=== PATIENT | female | born 1985 | race Caucasian/White ===

== ENCOUNTER 2020-05-24 17:14 | Emergency (ER) | payer OTHER, SELFPAY ==
--- NOTE | ~2020-05-24 | US_ITS ---
EXAMINATION: US OB <=14 wk fetus w TV DATE: 05/24/2020 18:45 INDICATION: Pain and bleeding during first trimester TECHNIQUE: Real-time pelvic ultrasound utilizing both a transvaginal and transabdominal probe was pe rformed. The interpreting radiologist was not present for the study. COMPARISON: None. FINDINGS: There is a single living fetus in variable presentation. The placenta is anterior. No evident subcho rionic hematoma. heart rate is 154 beats per minute (bpm). The amniotic fluid volume is subject ively normal. The following biometric data were obtained: BPD: 2.0 cm -> 13 weeks 1 days Head circumference: 8.8 cm -> 13 weeks 6 days Abdominal circumference: 7.0 cm -> 13 weeks 4 days Femur length: 1.0 cm -> 12 weeks 6 days These measurements are concordant. Head circumference to abdominal circumference ratio: 1.27 (normal range 1.12-1.33). Estimated weight: 72 g (+/-) 11 g. IMPRESSION: 1. Single living fetus in variable presentation with heart rate of 154 bpm. 2. Gestational age by ultrasound of 13 weeks 3 day(s) +/- 7 days with ultrasound estimated date of de livery (RUT) of 11/26/2020. Estimated weight is 56th percentile by Hadlock criteria when 11/30/19 21 is used as the RUT. Please correlate with clinical information or earlier ultrasounds for most acc urate RUT. Reviewed, dictated and finalized at location A. IMPRESSION: 1. Single living fetus in variable presentation with heart rate of 154 bp m. 2. Gestational age by ultrasound of 13 weeks 3 day(s) +/- 7 days with ultrasoun d estimated date of delivery (RUT) of 11/26/2020. Estimated weight is 56th percentile by Hadlock criteria when 11/30/2020 is used as the RUT. Please corre late with clinical information or earlier ultrasounds for most accurate RUT.
[2020-05-24 17:23] VITALS: BP 139/73; PULSE 96; RESP 18; TEMP 37.4; O2SAT 100
--- NOTE | 2020-05-24 17:45 | PC.NURSE ---
IVA Harris at bedside. Plan to order labs, ultrasound, and go from there. No heart tones needed at this time d/t possibility of ultrasound.
--- NOTE | 2020-05-24 17:45 | ED.ABDPAIN ---
HPI - Abdominal Pain General Chief Complaint: Vaginal Bleeding <Giovanni Cartwright PA-C - Last Filed: 05/24/20 20:32> Stated Complaint: 13 wks , bleeding <Giovanni Cartwright PA-C - Last Filed: 05/24/20 20:32> Time Seen by Provider: 05/24/20 17:33 <Giovanni Cartwright PA-C - Last Filed: 05/24/20 20:32> Source: patient and family <Giovanni Cartwright PA-C - Last Filed: 05/24/20 20:32> Mode of arrival: ambulatory <Giovanni Cartwright PA-C - Last Filed: 05/24/20 20:32> Limitations: no limitations <Giovanni Cartwright PA-C - Last Filed: 05/24/20 20:32> History of Present Illness HPI narrative: Patient is a 34-year-old female who presents to emergency department for evaluation of vaginal bleeding that began today patient is currently [address] Bartlett patient notes that she has used in vitro fertilization for this patient is G3, P2. Patient notes minimal cramping patient denies any injury or trauma or other complaints presents per private vehicle in no distress <Giovanni Cartwright PA-C - Last Filed: 05/24/20 20:32> Related Data Home Medications: Home Medications Medication Instructions Recorded Confirmed PNV,calcium 75-bjkm-lbspj acid tablet 05/24/20 [ Vitamin Plus Low Iron] <Giovanni Cartwright PA-C - Last Filed: 05/24/20 20:32> Allergies/Adverse Reactions: Allergies Allergy/AdvReac Type Severity Reaction Status Date / Time No Known Allergies Allergy Unknown Verified 05/24/20 17:35 <Giovanni Cartwright PA-C - Last Filed: 05/24/20 20:32> Review of Systems Review of Systems: All systems reviewed & are unremarkable except as noted in HPI and below <Giovanni Cartwright PA-C - Last Filed: 05/24/20 20:32> [facility]LY [facility] Social History Social History: Social History (Updated 05/24/20 @ 17:46 by Giovanni Cartwright PA-C) Smoking status: Never smoker Gender identity (if verbalized by the patient): Female <Giovanni Cartwright PA-C - Last Filed: 05/24/20 20:32> Exam Narrative: Exam Narrative: GENERAL: Well-appearing, well-nourished, and in no acute distress. HEAD: Normocephalic, atraumatic. EYES: PERRLA and EOMI. ENT: Nares clear, no rhinorrhea or epistaxis. Mucous membranes moist. CHEST: Clear to auscultation. No respiratory distress. No wheezes rales or rhonchi HEART: Regular rate and rhythm. No murmur heard. Normal peripheral pulses. ABDOMEN: Soft, nontender, nondistended EXTREMITIES: Normal range of motion. No edema. SKIN: Warm, dry, no rash. NEURO: No focal deficits. Alert and oriented x3. PSYCH: Normal mood and affect. 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 who would like the patient to be on pelvis rest to follow-up in clinic in the next week and given bleeding precautions can be discharged home with follow-up in clinic given the findings <ANTOINE Polo Last Filed: 05/24/20 20:32> Date: 05/24/20 <ANTOINE Polo Last Filed: 05/24/20 20:32> Time: 20:30 <ANTOINE Polo Last Filed: 05/24/20 20:32> Vital Signs Vital signs: Vital Signs Temperature 99.3 F 05/24/20 17:23 Pulse Rate 96 05/24/20 17:23 Respiratory Rate 18 05/24/20 17:23 Blood Pressure 139/73 05/24/20 17:23 Pulse Oximetry 100 05/24/20 17:23 Temperature 98.7 F 05/24/20 20:51 Pulse Rate 80 05/24/20 20:51 Respiratory Rate 20 05/24/20 20:51 Blood Pressure 103/45 L 05/24/20 20:51 Pulse Oximetry 99 05/24/20 20:51 <ANTOINE Polo Last Filed: 05/24/20 20:32> Vital Signs Temperature 99.3 F 05/24/20 17:23 Pulse Rate 96 05/24/20 17:23 Respiratory Rate 18 05/24/20 17:23 Blood Pressure 139/73 05/24/20 17:23 Pulse Oximetry 100 05/24/20 17:23 Temperature 98.7 F 05/24/20 20:51 Pulse Rate 80 05/24/20 20:51 Respiratory Rate 20 05/24/20 20:51 Blood Pres
--- NOTE | 2020-05-24 18:35 | PC.NURSE ---
pt returned from ultrasound via wheelchair, no current needs.
[2020-05-24 18:46] LABS: Alanine Aminotransferase 16 U/L (4-35); Albumin Level 3.8 g/dL (3.5-5.1); Alkaline Phosphatase 58 U/L (38-126); Anion Gap 6 mmol/L (8-16); Aspartate Amino Transferase 21 U/L (14-36); Bilirubin,Total 0.2 mg/dL (0.2-1.3); Blood Urea Nitrogen 9 mg/dL (7-17); Calcium 8.8 mg/dL (8.4-10.2); Carbon Dioxide 24 mmol/L (22-30); Chloride 105 mmol/L (98-107); Estimated CRCL calculation 129 ml/min; Estimated Glomerular Filt Rate > 60; Glucose 89 mg/dL (65-105); Potassium 3.4 mmol/L (3.4-5.0); Sodium 135 mmol/L (137-145)
[2020-05-24 20:12] LABS: Add Urine Microscopic? YES; Appearance Urine Clear (Clear); Bacteria Urine Trace /hpf; Bilirubin Urine Negative (Negative); Blood Urine 3+ (Negative); Color Urine Straw (Yellow); Glucose Urine UA Negative (Negative); Ketones Urine Trace mg/dL (Negative); Leukocyte Esterase Ur Negative LEU/UL (Negative); Nitrate Urine Negative (Negative); Protein Urine Negative (Negative); RBC Urine >75 /hpf (0-2); Specific Grav Ur 1.008 (1.001-1.035); Squamous Epithelial Cell Urine Occasional /hpf (Few); Urobilinogen Urine Negative mg/dL (<2.0)
[2020-05-24 20:51] VITALS: BP 103/45; PULSE 80; RESP 20; TEMP 37.1; O2SAT 99
== END 2020-05-24 20:52 | disposition home or self-care (01) ==
PROVIDERS: Emergency Medicine Emergency Medical Services; Emergency Provider Emergency Medicine
DX: O20.9 Hemorrhage in early pregnancy, unspecified (principal); Z3A.13 13 weeks gestation of pregnancy
CPT/HCPCS: 36415; 76801; 76817; 80053; 81001; 84702; 85461; 99284

== ENCOUNTER 2020-11-23 07:07 | Outpatient (CLI) | payer OTHER, SELFPAY ==
[2020-11-23 07:20] LABS: Hematocrit 39.3 % (37.0-47.0); Mean Corpuscular HGB Conc 33.1 g/dl (32-36); Mean Corpuscular Hemoglobin 30.4 pg (26-34); Mean Corpuscular Volume 91.8 fl (80-100); Mean Platelet Volume 11.5 fl (7.4-10.4); Platelet Count Result 188 k/mm3 (150-375); Red Blood Count 4.28 M/mm3 (4.2-5.4); Red Cell Distribution Width 13.2 % (11.5-14.5); White Blood Count 13.1 K/mm3 (4.5-10.0)
[2020-11-23 13:47] LABS: Rapid Plasma Reagin Non-Reactive (NonReactive)
== END 2020-11-23 07:08 | disposition home or self-care (01) ==
PROVIDERS: Visit Provider Obstetrics & Gynecology
DX: Z01.818 Encounter for other preprocedural examination (principal)
CPT/HCPCS: 36415; 85027; 86592; 86850; 86900; 86901

== ENCOUNTER 2020-11-24 05:25 | Inpatient (IN) | payer OTHER, SELFPAY ==
--- NOTE | 2020-11-23 21:08 | PM.IMHP ---
H&P: HPI History of Present Illness Date/Time: 11/23/20 21:08 Chief Complaint: Scheduled section Narrative: Trisha Cuadra is a 35 year old female at 39w1d presenting for scheduled repeat section. She has a history of 1 previous section. care has been uncomplicated. Review of Systems Constitutional: Constitutional: Reports no additional constitutional complaints ENT: Reports system reviewed and no additional complaints, except as documented Cardiovascular: Cardiovascular: Reports no additional cardiovascular complaints Respiratory: Respiratory: Reports no additional respiratory complaints Gastrointestinal: Gastrointestinal: Reports no additional gastrointestinal complaints Genitourinary: Genitourinary: Reports no additional female genitourinary complaints Musculoskeletal: Musculoskeletal: Reports no additional musculoskeletal complaints Neurologic: Reports system reviewed and no additional complaints, except as documented Psychiatric: Psychiatric: Reports no additional psychiatric complaints Endocrine: Endocrine: Reports no additional endocrine complaints Hematologic/Lymphatic: Hematologic/Lymphatic: Reports no additional hematologic/lymphatic complaints FOR[facility] Surgical History Surgical History (Updated 11/23/20 @ 21:20 by Alton Arceo DO) Previous section Family History Family History (Updated 11/23/20 @ 21:14 by Alton Arceo DO) Grandparent Cerebrovascular accident Social History Social History (Updated 11/23/20 @ 21:15 by Alton Arceo DO) Smoking status: Former smoker Substance use: never Gender identity (if verbalized by the patient): Female Spiritual care concerns: No Meds Home Medications and Allergies Home Medications Medication Instructions Recorded Confirmed Type PNV cmb#95-ferrous fumarate-FA 1 tablet PO DAILY 11/04/20 11/04/20 History [] Allergies Allergy/AdvReac Type Severity Reaction Status Date / Time No Known Allergies Allergy Unknown Verified 05/24/20 17:35 Exam Const: General: cooperative, healthy appearing, comfortable, no acute distress, well developed, alert, awake and Physically active; No acute distress Resp: Effort & Inspection: normal respiratory effort, able to speak in complete sentences, normal respiratory pattern and not labored Cardio: Rate: regular rate Rhythm: regular rhythm GI: Inspection: normal to inspection GI Palp: No abdominal tenderness : General: Yes deferred Neuro: General: oriented to person, oriented to place, oriented to time and patient oriented x3 Psych: Appearance: grossly normal Mental Status: mental status grossly normal Speech and movement: Normal speech and movement present Affect: normal affect Attitude: cooperative Thought process: Normal thought process present Thought content: Yes Normal thought content present Insight: Good insight present (Psych) Judgement: Good judgement present (Psych) Assessment and Plan Assessment and plan (1) Term : Code(s): Z34.90 - Encounter for supervision of normal , unspecified, unspecified trimester Status: Acute (2) History of delivery: Code(s): Z98.891 - History of uterine scar from previous surgery Status: Acute Additional Plan Repeat low transverse section
[2020-11-24] VITALS (51 sets, daily range): BP systolic 88–126; BP diastolic 42–82; PULSE 58–87; RESP 14–18; TEMP 36.1–36.9; O2SAT 96–100; BMI 29.3
[2020-11-24] MEDS: LACTATED RINGERS 1,000 ML 999 ML IV CONT (05:56)
[2020-11-24] MEDS: LACTATED RINGERS 1,000 ML 125 ML IV CONT ×3 (07:01→13:53)
--- NOTE | 2020-11-24 07:02 | WPDANESEPPF ---
Anes - Initial Pre Proc Eval Procedure: Operation Date: 11/24/20 07:30 Proposed Procedures p Repeat Section - Alton Arceo DO Date/Time: 11/24/20 07:02 Surgeon: Khang Bartlett MD Pre Op Diagnosis: section Patient Data Age: 35 Gender: F Height: 5 ft 7 in Weight: 85 kg Last Vital Signs Pulse 77 11/24/20 06:02 BP 118/60 11/24/20 06:02 Allergies Allergy/AdvReac Type Severity Reaction Status Date / Time No Known Allergies Allergy Unknown Verified 05/24/20 17:35 Home Medications Medication Instructions Recorded Confirmed Type PNV cmb#95-ferrous fumarate-FA 1 tablet PO DAILY 11/04/20 11/04/20 History [] Patient hx anesthesia problems: none Family hx anesthesia problems: none PMFSH Surgical History Surgical History Previous section Family History Family History Grandparent Cerebrovascular accident Social History Social History Smoking status: Never smoker Second hand tobacco smoke exposure: No Substance use: never Gender identity (if verbalized by the patient): Female Spiritual care concerns: No Anes - Eval Final PreProcedure Day of Procedure 11/24/20 07:02 Patient weight: overweight Heart: regular rate and rhythm Lungs: clear to auscultation Airway: Mallampati scale class 1 Neurological: alert and oriented Last oral intake: >/= 8 hours ASA classification: II Emergent: no Anesthetic plan: proceed Anesthesia type and monitoring: regional spinal and standard monitoring Informed Consent: The patient's anesthetic plan and its attendant risks and benefits were discussed with the patient/family/POA. Questions were solicited and answers provided to the satisfaction of the patient/family/POA.
--- NOTE | 2020-11-24 07:14 | WPDHPUPDATE1 ---
History and Physical Update Update Date/Time: 11/24/20 07:14 History and Physical has been reviewed, including an updated exam of the patient. There are NO changes in the patient's condition. Risks, benefits, and alternatives have been discussed and questions answered. Patient agrees to proceed with procedure.
[2020-11-24] MEDS: ceFAZolin 2 GM/D5W 50 ML 2 GM/50 ML BAG IVPB (07:20)
--- NOTE | 2020-11-24 08:25 | PM.OP ---
Procedure Note - Brief Procedure Note - Brief Date of procedure: 11/24/20 Pre-op diagnosis: section Previous section Post-op diagnosis: same Procedure performed: Repeat low transverse section Anesthesia: spinal Surgeon: Alton Arceo DO Estimated blood loss (mL): 305 Urine output (mL): 200 Drains: No Packing: No Pathology: none sent Complications: No immediate complications Condition: stable Disposition: floor
--- NOTE | 2020-11-24 08:26 | PM.OBPRVD ---
OB - Delivery Note Procedure Delivery date: 11/24/20 Procedure: Procedures Operation Date: 11/24/20 07:30 <No data on this case meets the specified criteria> Route of delivery: (repeat low transverse) Quantitative Blood Loss (ml): 305 Anesthesia type: Spinal Disposition: floor Narrative: Patient was transferred to the OR table and once adequate anesthesia was established, she was placed in dorsal position with left tilt of the hips. Preoperative antibiotics were administered. A timeout was performed to identify the correct patient and procedure. She was draped in the usual sterile fashion. A pfannenstiel skin incision was made with the scalpel. Subsequent dissection of the subcutaneous layer was performed with the scalpel down to the level of the fascia. Bovie was used to obtain hemostasis from small bleeding vessels. The fascia was nicked at the midline. Fascial incision was extended laterally with Og scissors. Tiffanie clamps were used to tent the superior aspect of the fascia up and the rectus muscles were carefully dissected off the fascia. Attention was then turned to the inferior aspect of the fascia and this was tented up with the Tiffanie clamps and rectus muscles dissected off the fascia. The rectus muscles were divided at the midline and the peritoneum was bluntly entered. Brandon self-retaining retractor was inserted. A low transverse uterine incision was made. This was extended bluntly with cephalad and caudad force. Amniotic sac was entered and clear fluid was noted. The 's head was elevated to the level of the hysterotomy and delivered with gentle fundal pressure, followed by the rest of the body. Cord was clamped and cut and was handed off the nursing staff. Placenta was expressed. Hysterotomy was examined for any extensions and no extensions were noted. This was reapproximated with 0 Vicryl in continuous locking fashion. Good hemostasis noted. Bilateral ovaries and fallopian tubes appeared normal. Paracolic gutter were cleaned of any clots.The fascia was then reapproximated with 0 Vicryl in continuos non-locking fashion. Subcutaneous tissue was reapproximated with 2-0 plain. The skin was reapproximated with 4-0 Monocryl in subcuticular fashion. Sterile bandage was applied. All sponge and instrument counts were correct during and at the end of the procedure. Patient tolerated the procedure was well and was transferred to recovery. Baby Date of : 11/24/20 Time of : 07:48 Weeks of gestation at delivery: 39 Infant gender: Male Weight (pounds): 8 Weight (ounces): 9 presentation: vertex Placenta delivery description: Expressed cord vessel description: 3 Vessels score one minute: 8 score five minutes: 9
[2020-11-24] MEDS: OXYTOCIN 30 UNITS/NS 500 ML 30 UNITS/500 ML BAG 125 UNITS IV CONT (09:03)
--- NOTE | 2020-11-24 10:50 | OBPPTRN ---
Patient transferred to post room #290 via stretcher. Support person present. Oriented to unit, room, information board, rooming in, admission packet and security measures. Patient verbalizes understanding.
[2020-11-24] MEDS: KETOROLAC 30 MG/ML VIAL (*BKC) IV PUSH ×2 (11:08→20:08)
[2020-11-24] MEDS: HYDROcodone/acetaminophen (*CRX) 10-325 MG TABLET 1 TAB PO (23:15)
[2020-11-24] MEDS: IBUPROFEN 600 MG TABLET PO (23:15)
[2020-11-25 04:00] VITALS: BP 112/50; PULSE 73; RESP 14; TEMP 36.9; O2SAT 99
[2020-11-25] MEDS: SIMETHICONE 80 MG TAB.CHEW PO (05:26)
[2020-11-25] MEDS: IBUPROFEN 600 MG TABLET PO ×3 (05:26→19:57)
[2020-11-25] MEDS: HYDROcodone/acetaminophen (*CRX) 10-325 MG TABLET 1 TAB PO (05:26)
[2020-11-25 06:01] LABS: Basophils Absolute Auto 0.1 K/mm3 (0.0-0.1); Basophils Percent Auto 0.5 % (0.2-1.2); Eosinophils Absolute Auto 0.1 K/mm3 (0-0.3); Hematocrit 35.7 % (37.0-47.0); Hemoglobin 11.8 g/dL (12.0-15.0); Immature Granulocyte Absolute 0.13 K/mm3 (0.00-0.031); Immature Granulocyte Percent A 1.1 % (0-0.5); Lymphocytes Absolute Auto 1.26 K/mm3 (0.9-3.2); Lymphocytes Percent Auto 10.3 % (18.3-44.2); Mean Corpuscular HGB Conc 33.1 g/dl (32-36); Mean Corpuscular Hemoglobin 30.7 pg (26-34); Mean Platelet Volume 12.1 fl (7.4-10.4); Monocytes Absolute Auto 1.3 K/mm3 (0.1-0.6); Monocytes Percent Auto 10.4 % (2.6-8.5); Neutrophils Absolute Auto 9.4 K/mm3 (1.3-6.7); Neutrophils Percent Auto 76.7 % (45.5-73.1); Platelet Count Result 149 k/mm3 (150-375); Red Blood Count 3.84 M/mm3 (4.2-5.4); Red Cell Distribution Width 13.3 % (11.5-14.5); White Blood Count 12.3 K/mm3 (4.5-10.0)
[2020-11-25 07:15] VITALS: BP 115/56; PULSE 76; RESP 18; TEMP 37.5; O2SAT 99
--- NOTE | 2020-11-25 08:02 | WPDANLDPN2 ---
Anes-Prog Note L&D Date/Time: 11/25/20 08:02 Comfortable throughout: section Neuraxial method: spinal Epidural/Spinal procedure site: clean & non-tender Neuro status: Neuro function grossly intact. Cardiovascular status: normal Respiratory status: normal Airway patency: baseline Mental status: baseline Post-Op hydration status: normal Vital Signs: Last Vital Signs Temp 36.9 C 11/25/20 04:00 Pulse 73 11/25/20 04:00 Resp 14 11/25/20 04:00 BP 112/50 L 11/25/20 04:00 Pulse Ox 99 11/25/20 04:00 Pain score (VAS): 0 I/O: Intake & Output 11/24/20 11/25/20 11/25/20 23:59 07:59 15:59 Intake Total 571 Output Total 450 Balance 121 Post-procedural complaints: none Patient feedback: Patient satisfied with anesthetic care.
--- NOTE | 2020-11-25 08:02 | WPDANLDNPN2 ---
Anes-Prog Note L&D-Neuraxial Date/Time: 11/25/20 08:02 Neuraxial medications: intrathecal PF morphine Opiod-related complaints: none Patient feedback: Patient satisfied with post-operative pain management.
[2020-11-25] MEDS: MULTIVIT/MIN/PREN/FOL AC/IRON TABLET 1 TAB PO (10:47)
[2020-11-25] MEDS: DOCUSATE SODIUM 100 MG CAPSULE PO ×2 (10:48→16:54)
[2020-11-25] MEDS: HYDROcodone/acetaminophen (*CRX) 5-325 MG TABLET 1 TAB PO ×3 (10:48→19:57)
--- NOTE | 2020-11-25 13:01 | P.PNOB_ITS ---
OB - PN: Subj Subjective Date/time seen: 11/25/20 13:01 Doing well this morning. Having pain, but medication is helping. Tolerating diet. Ambulating. Denies chest pain, SOB. OB - PN: Obj Data Labs CBC & Chem 7: 11/25/20 05:25 Labs: Laboratory Results - last 24 hr 11/25/20 05:25 WBC 12.3 H RBC 3.84 L Hgb 11.8 L Hct 35.7 L MCV 93.0 MCH 30.7 MCHC 33.1 RDW 13.3 Plt Count 149 L MPV 12.1 H Immature Gran % (Auto) 1.1 H Neut % (Auto) 76.7 H Lymph % (Auto) 10.3 L [place] % (Auto) 10.4 H Eos % (Auto) 1.0 Baso % (Auto) 0.5 Lymph # (Auto) 1.26 [place] # (Auto) 1.3 H Eos # (Auto) 0.1 Baso # (Auto) 0.1 Abs Immat Gran (auto) 0.13 H Absolute Neuts (auto) 9.4 H Absolute Nucleated RBC 0.0 Nucleated RBC % 0.0 OB - PN A/P Assessment and Plan (1) Delivery by section using transverse incision of lower segment of uterus: Code(s): O82 - Encounter for delivery without indication Status: Acute Assessment and Plan: Routine post op and care Ambulate Pain management Time Spent With Patient Time: Total time spent is greater than 50% in coordination of care (as documented) at patient's floor/unit and/or counseling patient: Exam Const: General: cooperative, healthy appearing, comfortable and no acute distress Resp: Effort & Inspection: normal respiratory effort, able to speak in complete sentences and not labored Auscultation: clear to auscultation bilaterally Cardio: Rate: regular rate Rhythm: regular rhythm GI: GI Palp: Yes abdominal tenderness (postsurgical tenderness) and Yes Soft to palpation
[2020-11-25 20:00] VITALS: BP 113/57; PULSE 80; RESP 16; TEMP 36.6; O2SAT 97
[2020-11-26] MEDS: IBUPROFEN 600 MG TABLET PO (05:01)
[2020-11-26] MEDS: HYDROcodone/acetaminophen (*CRX) 5-325 MG TABLET 1 TAB PO ×2 (05:01→08:31)
[2020-11-26 08:00] VITALS: BP 107/69; PULSE 76; RESP 18; TEMP 36.7
[2020-11-26] MEDS: MULTIVIT/MIN/PREN/FOL AC/IRON TABLET 1 TAB PO (08:31)
[2020-11-26] MEDS: DOCUSATE SODIUM 100 MG CAPSULE PO (08:31)
[2020-11-28 10:22] VITALS: BP 112/61; PULSE 80; RESP 16; TEMP 36.9; O2SAT 98
--- NOTE | 2020-11-29 13:33 | PM.OBDSVD ---
DS: Admitting Diagnosis Admitting Diagnosis Admitting Diagnosis: Scheduled repeat section DS: Discharge Diagnosis Discharge Diagnosis (1) Delivery by section using transverse incision of lower segment of uterus: Code(s): O82 - Encounter for delivery without indication Status: Acute Assessment and Plan: Routine post op and care Ambulate Pain management OB - DS: Summary OB Procedures : None OB Procedures Intrapartum: (rpeat low transverse) OB Procedures: : None Peripartum Data Infant Delivery Method: Section Procedures: Procedures Operation Date: 11/24/20 07:30 Actual Procedures Side Surgeon p Repeat Section Not Applicable Alton Arceo DO complications: none Status at Discharge Functional status at discharge: independent ambulation Overall status at discharge: patient is progressing back to baseline Time Spent with Patient Time attestation: Total time spent providing and/or coordinating discharge services: Time spent: Less than 30 minutes Exam Const: General: cooperative, healthy appearing, comfortable, no acute distress, well developed, alert, awake and Physically active; No acute distress Orientation/consciousness: oriented to person, oriented to place, oriented to time and patient oriented x3 Resp: Effort & Inspection: normal respiratory effort, able to speak in complete sentences, normal respiratory pattern and not labored Auscultation: clear to auscultation bilaterally Cardio: Rate: regular rate Rhythm: regular rhythm GI: Inspection: normal to inspection Neuro: General: oriented to person, oriented to place, oriented to time and patient oriented x3 Psych: Appearance: grossly normal Mental Status: mental status grossly normal Speech and movement: Normal speech and movement present Affect: normal affect Attitude: cooperative Thought process: Normal thought process present Insight: Good insight present (Psych) Judgement: Good judgement present (Psych) Discharge Plan Discharge Attending physician on discharge: Lachelle Mitchell Consulting providers: Stephen Leggett Discharging Clinician: Lachelle Mitchell Anticipated Discharge Date/Time: 11/26/20 16:00 Patient Disposition: Home, Self-Care Activity: pelvic rest Diet: regular Discharge Instructions: Education: Mom and Baby Guide Given to: Mother Follow-Up: Call your delivering provider's office for an appointment to be seen in: 4 Weeks [facility]. Appointment Date/Time: November 28, 2020 at 10:00 am What to expect at your follow-up visit: Physical Assessment Call [phone] if you are unable to keep your appointment time. BREAST CARE: * Wear a snug supportive bra. * For engorgement discomfort: Bottle Feeding: * May apply ice packs ABDOMINAL INCISION: * Allow incision to air dry * Do NOT use lotions for powders on your incision * When showering, allow soap and water to run over the incision, but do not wash incision PERINEAL CARE: * Until bleeding stops, use your lorrie bottle after urinating * Change your pad frequently throughout the day * No tub baths until seen by your physician - You may shower ACTIVITY: * Rest as much as possible. * Do not exercise or lift anything heavier than your baby (such as laundry or other children.) * Avoid stairs or driving as much as possible. * Do not put anything into the vagina. No douching, tampons, or sexual activity until seen by physician. NOTIFY PHYSICIAN IF YOU HAVE ANY QUESTIONS OR IF ANY OF THE FOLLOWING SYMPTOMS OCCUR: * If your incision becomes red, swollen, or more painful than what you have experienced in the hospital. * If your vaginal bleeding becomes foul smelling. * If your vaginal bleeding becomes more heavy than a period or if your bleeding changes from pink to bright red.
== END 2020-11-26 12:18 | disposition home or self-care (01) | DRG 788 ==
LOC: ANHLDR 05:36 → ANHOB2 15:07 → ANHLDR 11-28 14:37 → ANHOB2 11-28 14:37
PROVIDERS: Admitting Provider Obstetrics & Gynecology; Visit Provider Obstetrics & Gynecology
PROC: 10D00Z1 Extraction of Products of Conception, Low, Open Approach (ICD-10-PCS; CPT 59514; principal; 2020-11-24 07:30)
DX: O34.211 Maternal care for low transverse scar from previous cesarean delivery (principal); Z87.891 Personal history of nicotine dependence; Z3A.39 39 weeks gestation of pregnancy; Z37.0 Single live birth
CPT/HCPCS: 36415; 85025; 85027; 86592; 86850; 86900; 86901; A9270; J0131; J0690; J1885; J2274; J2370; J2405; J2590; J7120

== ENCOUNTER 2024-08-19 07:15 | Outpatient (CLI) | payer BC, SELFPAY ==
[2024-08-19 08:30] LABS: Hematocrit 37.8 % (37.0-47.0); Hemoglobin 12.3 g/dL (12.0-15.0); Mean Corpuscular HGB Conc 32.5 g/dl (32-36); Mean Corpuscular Hemoglobin 30.1 pg (26-34); Mean Corpuscular Volume 92.6 fl (80-100); Mean Platelet Volume 12.3 fl (7.4-10.4); Platelet Count Result 220 k/mm3 (150-375); Red Blood Count 4.08 M/mm3 (4.2-5.4); Red Cell Distribution Width 13.7 % (11.5-14.5); White Blood Count 11.3 K/mm3 (4.5-10.0)
[2024-08-19 09:18] LABS: HIV 1/2 Ab P24 Ag Result Negative (Negative)
[2024-08-19 13:38] LABS: Rapid Plasma Reagin Non-Reactive (NonReactive)
== END 2024-08-19 07:16 | disposition home or self-care (01) ==
LOC: ANHLAB 07:17
PROVIDERS: Visit Provider Obstetrics & Gynecology
DX: Z01.818 Encounter for other preprocedural examination (principal)
CPT/HCPCS: 36415; 85027; 86592; 86703; 86850; 86900; 86901; G0432

== ENCOUNTER 2024-08-20 05:23 | Inpatient (IN) | payer BC, SELFPAY ==
[2024-08-20] VITALS (48 sets, daily range): BP systolic 70–128; BP diastolic 42–90; PULSE 62–89; RESP 14–18; TEMP 36.4–37.7; O2SAT 95–100; BMI 29.7
[2024-08-20] MEDS: ACETAMINOPHEN 500 MG TABLET 1000 MG PO (06:16)
[2024-08-20] MEDS: LACTATED RINGERS 1,000 ML 125 ML IV CONT (06:20)
--- NOTE | 2024-08-20 06:28 | LDADM ---
This patient, Trisha Garnett, was admitted to Labor/Delivery/Recovery 120 on 08/20/24 at 05:23. Plans for labor, pain management and were discussed with patient. Patient/family oriented to hospital policies and general routines including ID bracelet, bed and alarms, visiting hours, pain management, procedures, bathroom and other care routines, personal items, smoking policy, room service/diet and guest tray routines, security routines, and visiting hours. Patient/Family are encouraged to report perceived risks to care and to ask questions if they do not understand what they are told or what they should do. See [facility]BI[facility] for further documentation.
[2024-08-20] MEDS: ONDANSETRON INJ 4 MG/2 ML VIAL IV PUSH (07:09)
[2024-08-20] MEDS: FAMOTIDINE 20 MG/2 ML VIAL IV PUSH (07:10)
--- NOTE | 2024-08-20 07:13 | P.HP_ITS ---
H&P: HPI History of Present Illness Date/Time: 08/20/24 07:10 Chief Complaint: repeat + salpingectomy Narrative: Trisha is a 38yo @ 39.1wks who presents for repeat with salpingectomy. She reports good movement. No contractions, vaginal bleeding or leakage of fluid. She has had regular care; and co- management with [facility] (genetics and ultrasounds). Her is complicated by: - Previous x2; for repeat + salpingectomy - AMA; [facility] for anatomy/genetics, ASA @ 12wks - GBS positive in urine Review of Systems Constitutional: Constitutional: Denies chills, Denies fever(s) and Denies headache(s) Eyes: Eyes: Denies change in vision ENT: Denies headache(s) Cardiovascular: Cardiovascular: Denies chest pain and Denies dyspnea Respiratory: Respiratory: Denies dyspnea Genitourinary: Genitourinary: Denies abnormal vaginal bleeding and Denies vaginal discharge Neurologic: Denies headache(s) Psychiatric: Psychiatric: Denies anxiety and Denies depression [facility] Past Medical History Medical History In vitro fertilization Surgical History Surgical History H/O gynecological procedure mirena iud insertion 2009 mirena iud removal 2016 History of delivery xs2 Previous section Family History Family History Grandparent Cerebrovascular accident Social History Social History Smoking status: Current every day smoker Tobacco type: e-cigarettes/vaping Second hand tobacco smoke exposure: Yes Alcohol intake: never Substance use: never Substance use type: does not use Do You Feel Safe in your Home?: Yes Lack of Transportation: No Lack of Food: Never True Current Housing: I Have Housing Concerned About Future Housing: No Difficulty Paying Gas/Electric Bills: No Difficulty Paying for Meds: No Currently Unemployed: No Education: High School Diploma/GED Difficulty w/ Childcare or Family Care: No Living arrangements: with family Additional living arrangements comments: Occupation/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: 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 Gender identity (if verbalized by the patient): Female Sexual Orientation (if Verbalized by the Patient): Straight or Heterosexual Spiritual care concerns: No Meds Home Medications and Allergies Home Medications Medication Instructions Recorded Confirmed Type vit no.95-ferrous 1 tablet PO DAILY 90 days #90 tabs 11/26/20 08/20/24 Rx fumarate 28 mg-folic acid 800 mcg tablet () aspirin 81 mg tablet,delayed 81 mg PO DAILY 02/13/24 08/20/24 History release (Adult Aspirin Regimen) Allergies Allergy/AdvReac Type Severity Reaction Status Date / Time No Known Allergies Allergy Unknown Verified 08/13/24 08:37 Exam Const: General: cooperative, healthy appearing, comfortable and no acute distress Orientation/consciousness: patient oriented x3 Resp: Effort & Inspection: normal respiratory effort Cardio: Rate: regular rate GI: GI Palp: No abdominal tenderness : Other: FHT's: 1_0's/ mod lindy/ + accels/ no decels - cat 1 TOCO: ctxs q_min Membranes: intact Presentation: cephalic Skin: General skin exam: normal color Neuro: General: patient oriented x3 Extrem: General: normal to inspection Psych: Appearance: grossly normal Affect: normal affect Attitude: cooperative Assessment and Plan Assessment and plan (1) Delivery by section using transverse incision of lower segment of uterus: Code(s): O82 - Encounter for delivery without indication Status: Acute (2) Encounter for sterilization: Code(s): Z30.2 - Encounter for sterilization Status: Acute Plan - History of x2; desiring permanent sterilization - Risks and benefits discussed in detail - Ancef 2g IV once pre-op
--- NOTE | 2024-08-20 07:13 | WPDHPUPDATE1 ---
History and Physical Update Update Date/Time: 08/20/24 07:13 History and Physical has been reviewed, including an updated exam of the patient. There are NO changes in the patient's condition. Risks, benefits, and alternatives have been discussed and questions answered. Patient agrees to proceed with repeat and bilateral salpingectomy.
[2024-08-20] MEDS: ceFAZolin 2 GM/D5W 50 ML 2 GM/50 ML BAG IVPB (07:22)
--- NOTE | 2024-08-20 08:34 | W.PM.OBCSD ---
OB - Delivery Note Procedure Delivery date: 08/20/24 Pre-op diagnosis: Previous Delivery and Other (desire for sterilization) Post-op Diagnosis: Same Induction method: None Procedure Performed: Repeat Secondary branch: low cervical, transverse and Tubal Ligation Surgeon: Lachelle Mitchell MD Anesthesia type: Spinal Description of Procedure/Findings: Small amount of scarring in the subcutaneous fat/facial plane. Omental adhesions to the anterior abdominal wall. Thin bladder adhesions to the mid uterus; taken down. Clear fluid. Female infant, cephalic. Normal bilateral fallopian tubes and ovaries. Bilateral salpingectomy performed without issue. Specimen: Yes (left and right fallopian tubes) Estimated Blood Loss: 305 Pathology: Yes (left and right fallopian tubes) Complications: No immediate complications Condition: Stable Disposition: Floor Water View Baby Date of : 08/20/24 Time of : 07:58 Gestational Age by Date: 39 (.1) Infant gender: Female Weight (pounds): 9 Weight (ounces): 1 presentation: vertex Placenta delivery description: Expressed Cord Vessel Description: 3 Vessels, Clamped/Cut and Delayed Cord Clamping score one minute: 9 score five minutes: 9 Narrative: She was counseled on all risks and benefits in detail. She was taken to the operating room where spinal was placed. She was then prepped and draped in the normal sterile fashion. She received 2g Ancef and a time out was performed. A Pfannenstiel incision was made in the skin and carried down to the underlying fascia. The fascia was nicked on either side of the midline and the fascial incision was extended laterally and superiorly using curved Og scissors. The fascia was then elevated using Tiffanie clamps and the underlying rectus muscles were dissected off the fascia, superiorly and inferiorly. The rectus muscles were then in the midline and the peritoneum was entered bluntly. Once adequate exposure was obtained, a Mobius self retractor was placed within the abdomen. A bladder flap was created and the bladder adhesions were taken down. A low transverse incision was made on the lower uterine segment and clear fluid was noted. The occiput was brought to the hysterotomy and the head was easily delivered. The shoulders and body then followed without complications. The infant had spontaneous cry and the mouth and nose were bulb suctioned. The cord was clamped and cut and the infant was handed off to the awaiting pediatric nurse. A segment of the cord was collected for cord gases. The remaining cord blood was collected for typing. With pitocin infusing, the placenta delivered with gentle traction on the cord without complications. The uterus was then cleared out of all clots and debris using a clean, moist lap. The hysterotomy was then repaired in a running fashion using 0 Vicryl. The Mobius retractor was removed from the abdomen. Two additional stitches were placed in the midline of the hysterotomy (where the prior bladder adhesions were noted); and a figure of eight suture was placed using 0 Vicryl on the left apex of the hysterotomy and the hysterotomy was then found to be hemostatic with good uterine tone. The bilateral adnexa were examined and found to be normal. The left fallopian tube was elevated and grasped with a [place]. Small adhesions were noted at the fimbriated in and were low released using the Bovie cautery. The mesosalpinx was then serially clamped coagulated and transected using the LigaSure device until the proximal and was met. The fallopian tube was then cross clamped coagulated and transected using the LigaSure device and sent to pathology. The same procedure was performed on the right side without complication. Good hemostasis was noted. The pelvis was cleared of all clots and fluid. The peritoneum, muscle, and fascia were examined and made hemostatic with bovie cautery. The fascia was then repaired using a 0 Vicryl suture in a running fashion. The subcutaneous tissue was then irrigated and made hemostatic with bovie cautery. The skin was then closed using 4-0 Monocryl in a running subcuticular fashion. Sponge, lap, needle and instrument counts were correct at the end of the procedure x2. The patient tolerated the procedure well and was taken to recovery in a stable condition.
[2024-08-20] MEDS: OXYTOCIN 30 UNITS/NS 500 ML 30 UNITS/500 ML BAG 125 UNITS IV CONT (08:41)
[2024-08-20] MEDS: LIDOCAINE 5% PATCH 1 PATCH TRANSDERM (10:16)
[2024-08-20] MEDS: diphenhydrAMINE HCl INJ 50 MG/ML VIAL 25 MG IV PUSH (10:25)
[2024-08-20] MEDS: fentaNYL CITRATE INJ (*CRX) 100 MCG/2 ML VIAL 25 MCG IV PUSH (10:26)
--- NOTE | 2024-08-20 11:10 | WPDANESEPPF ---
Anes - Initial Pre Proc Eval Procedure: Operation Date: 08/20/24 07:30 Proposed Procedures p Repeat Section with Bilateral Tubal Ligation - Lachelle Mitchell MD Date/Time: 08/20/24 11:10 Surgeon: Lachelle Mitchell MD Pre Op Diagnosis: C/S Patient Data Age: 38 Gender: F Height: 1.7 m Weight: 86.3 kg Last Vital Signs Temp 36.4 C 08/20/24 08:40 Pulse 67 08/20/24 10:45 Resp 16 08/20/24 10:40 BP 115/60 08/20/24 10:45 Pulse Ox 99 08/20/24 10:45 O2 Del Method Room Air 08/20/24 10:40 Allergies Allergy/AdvReac Type Severity Reaction Status Date / Time No Known Allergies Allergy Unknown Verified 08/13/24 08:37 Home Medications Medication Instructions Recorded Confirmed Type vit no.95-ferrous 1 tablet PO DAILY 90 days #90 tabs 11/26/20 08/20/24 Rx fumarate 28 mg-folic acid 800 mcg tablet () aspirin 81 mg tablet,delayed 81 mg PO DAILY 02/13/24 08/20/24 History release (Adult Aspirin Regimen) Patient hx anesthesia problems: none Family hx anesthesia problems: none Results Review: All pre-operative results and documents have been reviewed as part of the pre-operative evaluation. [facility] Past Medical History Medical History In vitro fertilization Surgical History Surgical History H/O gynecological procedure mirena iud insertion 2009 mirena iud removal 2016 History of delivery xs2 Previous section Family History Family History Grandparent Cerebrovascular accident Social History Social History Smoking status: Current every day smoker Tobacco type: e-cigarettes/vaping Second hand tobacco smoke exposure: Yes Alcohol intake: never Substance use: never Substance use type: does not use Do You Feel Safe in your Home?: Yes Lack of Transportation: No Lack of Food: Never True Current Housing: I Have Housing Concerned About Future Housing: No Difficulty Paying Gas/Electric Bills: No Difficulty Paying for Meds: No Currently Unemployed: No Education: High School Diploma/GED Difficulty w/ Childcare or Family Care: No Living arrangements: with family Additional living arrangements comments: Occupation/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: 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 Gender identity (if verbalized by the patient): Female Sexual Orientation (if Verbalized by the Patient): Straight or Heterosexual Spiritual care concerns: No Anes - Eval Final PreProcedure Day of Procedure 08/20/24 11:10 Patient weight: normal Heart: regular rate and rhythm Lungs: clear to auscultation Airway: Mallampati scale class 1 Neurological: alert and oriented Last oral intake: >/= 8 hours ASA classification: II Emergent: no Anesthetic plan: proceed Anesthesia type and monitoring: regional spinal and standard monitoring Results Review: All pre-operative results and documents have been reviewed as part of the pre-operative evaluation. Informed Consent: The patient's anesthetic plan and its attendant risks and benefits were discussed with the patient/family/POA. Questions were solicited and answers provided to the satisfaction of the patient/family/POA.
--- NOTE | 2024-08-20 11:33 | OBPPTRN ---
Patient transferred to post room #290 via (stretcher). Support person present. Oriented to unit, room, information board, rooming in, admission packet and security measures. Patient verbalizes understanding.
[2024-08-20] MEDS: DEXTROSE 5%/0.45% SOD CHL 1,000 ML 125 ML IV CONT (12:07)
[2024-08-20] MEDS: ACETAMINOPHEN 325 MG TABLET 650 MG PO ×2 (12:08→18:06)
[2024-08-20] MEDS: KETOROLAC 15 MG/ML VIAL (*BKC) IV PUSH ×2 (12:08→18:06)
[2024-08-20] MEDS: DOCUSATE SODIUM 100 MG CAPSULE PO ×2 (12:10→16:28)
[2024-08-20] MEDS: HYDROcodone/acetaminophen (*CRX) 5-325 MG TABLET 1 TAB PO (12:10)
[2024-08-20] MEDS: SIMETHICONE 80 MG TAB.CHEW PO ×2 (12:10→16:28)
[2024-08-21 04:39] LABS: Basophils Absolute Auto 0.1 K/mm3 (0.0-0.1); Basophils Percent Auto 0.4 % (0.2-1.2); Eosinophils Absolute Auto 0.1 K/mm3 (0-0.3); Eosinophils Percent Auto 0.9 % (0-4.4); Hematocrit 32.2 % (37.0-47.0); Hemoglobin 10.5 g/dL (12.0-15.0); Immature Granulocyte Absolute 0.11 K/mm3 (0.00-0.031); Immature Granulocyte Percent A 0.9 % (0-0.5); Lymphocytes Percent Auto 8.8 % (18.3-44.2); Mean Corpuscular HGB Conc 32.6 g/dl (32-36); Monocytes Absolute Auto 1.1 K/mm3 (0.1-0.6); Monocytes Percent Auto 8.5 % (2.6-8.5); Neutrophils Absolute Auto 10.1 K/mm3 (1.3-6.7); Neutrophils Percent Auto 80.5 % (45.5-73.1); Platelet Count Result 145 k/mm3 (150-375); Red Cell Distribution Width 14.1 % (11.5-14.5); White Blood Count 12.6 K/mm3 (4.5-10.0)
[2024-08-21 04:50] VITALS: BP 111/48; PULSE 79; RESP 18; TEMP 37; O2SAT 100
[2024-08-21] MEDS: ACETAMINOPHEN 325 MG TABLET 650 MG PO ×5 (05:30→22:00)
[2024-08-21] MEDS: KETOROLAC 15 MG/ML VIAL (*BKC) IV PUSH ×2 (05:30)
[2024-08-21 07:50] VITALS: BP 120/39; PULSE 80; RESP 16; TEMP 36.9; O2SAT 98
[2024-08-21] MEDS: MULTIVIT/MIN/PREN/FOL AC/IRON TABLET 1 TAB PO (07:51)
[2024-08-21] MEDS: SIMETHICONE 80 MG TAB.CHEW PO ×3 (07:51→16:54)
[2024-08-21] MEDS: DOCUSATE SODIUM 100 MG CAPSULE PO (07:51)
--- NOTE | 2024-08-21 09:11 | PM.OBDSVD ---
DS: Admitting Diagnosis Discharge Date 08/22/2024 Admitting Diagnosis DS: Discharge Diagnosis Discharge Diagnosis (1) Status post repeat low transverse section: Code(s): Z98.891 - History of uterine scar from previous surgery Status: Acute OB - DS: Summary OB Procedures : None OB Procedures Intrapartum: low cervical, transverse and Tubal ligation OB Procedures: : None Peripartum Data Procedures: Procedures Operation Date: 08/20/24 07:30 Actual Procedure Side Surgeon p Section Lachelle Mitchell MD Time Spent with Patient Time attestation: Total time spent providing and/or coordinating discharge services: DS: Data Data Completed and Pending Pending studies at discharge: Pending at discharge 08/20/24 08:10 Surgical [PTH] Routine Labs on day of discharge: Labs from last 24 hours 08/21/24 04:32 WBC 12.6 H RBC 3.50 L Hgb 10.5 L Hct 32.2 L MCV 92.0 MCH 30.0 MCHC 32.6 RDW 14.1 Plt Count 145 L MPV 12.0 H Immature Gran % (Auto) 0.9 H Neut % (Auto) 80.5 H Lymph % (Auto) 8.8 L [place] % (Auto) 8.5 Eos % (Auto) 0.9 Baso % (Auto) 0.4 Lymph # (Auto) 1.10 [place] # (Auto) 1.1 H Eos # (Auto) 0.1 Baso # (Auto) 0.1 Abs Immat Gran (auto) 0.11 H Absolute Neuts (auto) 10.1 H Absolute Nucleated RBC 0.000 Nucleated RBC % 0.0 Discharge Plan Discharge Discharging Clinician: Lachelle Mitchell Patient Disposition: Home, Self-Care Activity: may shower and pelvic rest Diet: regular Discharge Instructions: No lifting over 15lbs for 6 weeks Remove dressing on 08/26/24; then keep incision open to air; clean and dry Patient Instructions: (DC) Stand Alone Forms: General Discharge Information Follow-up/Referrals: Lachelle Mitchell MD [Physician] - 4 Weeks Discharge Medications: New acetaminophen 325 mg Tablet 650 mg PO Q6H Qty: 60 0RF hydrocodone-acetaminophen 5-325 mg Tablet 1 tablet PO Q3H PRN (Reason: Breakthrough Pain Rated 4-6) Qty: 20 0RF docusate sodium 100 mg Capsule 100 mg PO BID Qty: 60 0RF ibuprofen 600 mg Tablet 600 mg PO Q6H Qty: 40 0RF Continued PNV cmb#95-ferrous fumarate-FA [] 28 mg iron- 800 mcg Tablet 1 tablet PO DAILY 90 Days Qty: 90 0RF Discontinued aspirin [Adult Aspirin Regimen] 81 mg tablet,delayed release (DR/EC) 81 mg PO DAILY Date of admission: 08/20/24 05:23 Primary Care Provider: PHYSICIAN,[employer]ACH[employer] RIGGER Admitting Provider: Lachelle Mitchell Attending physician on admission: Lachelle Mitchell Condition: Stable
--- NOTE | 2024-08-21 10:40 | WPDANLDPN2 ---
Anes-Prog Note L&D Date/Time: 08/21/24 10:40 Comfortable throughout: section Neuraxial method: spinal Epidural/Spinal procedure site: clean & non-tender Neuro status: Neuro function grossly intact. Cardiovascular status: normal Respiratory status: normal Airway patency: baseline Mental status: baseline Post-Op hydration status: normal Vital Signs: Last Vital Signs Temp 36.9 C 08/21/24 07:50 Pulse 80 08/21/24 07:50 Resp 16 08/21/24 07:50 BP 120/39 L 08/21/24 07:50 Pulse Ox 98 08/21/24 07:50 O2 Del Method Room Air 08/21/24 04:50 Pain score (VAS): 0/10 I/O: Intake & Output 08/20/24 08/21/24 08/21/24 23:59 07:59 15:59 Intake Total 1740 Output Total 1175 Balance 565 Post-procedural complaints: none Patient feedback: Patient satisfied with anesthetic care.
--- NOTE | 2024-08-21 10:40 | WPDANLDNPN2 ---
Anes-Prog Note L&D-Neuraxial Date/Time: 08/21/24 10:40 Neuraxial medications: intrathecal PF morphine Opiod-related complaints: pruritis mild, no treatment Patient feedback: Patient satisfied with post-operative pain management.
[2024-08-21] MEDS: IBUPROFEN 600 MG TABLET PO ×3 (11:46→22:00)
[2024-08-21 12:12] VITALS: BP 120/67; PULSE 71
[2024-08-21 20:00] VITALS: BP 116/55; PULSE 68; RESP 18; TEMP 36.4; O2SAT 98
[2024-08-22] MEDS: ACETAMINOPHEN 325 MG TABLET 650 MG PO ×2 (04:25→10:19)
[2024-08-22] MEDS: IBUPROFEN 600 MG TABLET PO ×2 (04:25→10:19)
[2024-08-22] MEDS: DOCUSATE SODIUM 100 MG CAPSULE PO (07:37)
[2024-08-22] MEDS: MULTIVIT/MIN/PREN/FOL AC/IRON TABLET 1 TAB PO (07:37)
[2024-08-22] MEDS: SIMETHICONE 80 MG TAB.CHEW PO (07:37)
[2024-08-22 07:45] VITALS: BP 129/61; PULSE 76; RESP 16; TEMP 36.6; O2SAT 100
--- NOTE | 2024-08-22 09:57 | PC.NURSE ---
Patient instructed on viewing the discharge video Mother & Baby Care, The First Two Weeks . Patient was given the opportunity and encouraged to ask questions. Patient verbalized understanding of information shared and has been given the mother/baby guide for home reference.
[2024-08-24 09:37] VITALS: BP 123/61; PULSE 78; RESP 16; TEMP 36.4; O2SAT 99
== END 2024-08-22 11:08 | disposition home or self-care (01) | DRG 785 ==
LOC: ANHLDR 09:32 → ANHOB2 13:17 → ANHLDR 08-25 09:41 → ANHOB2 08-25 09:41
PROVIDERS: Admitting Provider Obstetrics & Gynecology; Visit Provider Obstetrics & Gynecology
PROC: 10D00Z1 Extraction of Products of Conception, Low, Open Approach (ICD-10-PCS; CPT 59514; principal; 2024-08-20 07:30)
DX: O34.211 Maternal care for low transverse scar from previous cesarean delivery (principal); Z37.0 Single live birth; Z3A.39 39 weeks gestation of pregnancy; O99.824 Streptococcus B carrier state complicating childbirth; Z30.2 Encounter for sterilization
CPT/HCPCS: 36415; 85025; 88302; A9270; J0690; J1200; J1885; J2274; J2371; J2405; J2590; J3010; J7120